=== PATIENT | female | born 1950 | race Caucasian/White ===

== ENCOUNTER → 2016-08-21 07:56 | Day surgery (SDC) | payer MEDICARE, BC ==
[~2016-08-21 07:56] MED LIST: Acetaminophen TAB* 325 MG PO PRN; Buffered Lidocaine 1% SYR 3ML* 3 ML/SYR SYRINGE INTRADERM ONE; Buffered Lidocaine 1% SYR 3ML* 3 ML/SYR SYRINGE ONE; Cyclopentolate 1% OPTH.SOL* 2 ML BTL ONE; Flurbiprofen 0.03% OPTH.SOL* 2.5 ML BTL ONE; Lidocaine 1% MPF* 2 ML VIAL ONE; Lidocaine 2% EPI 1:200000 MPF* 20 ML VIAL ONE; Midazolam* 1 MG/ML 2 ML VIAL (2 MG) ONE; Neomycin/Polymy/Dex OPTH.SUSP* MAXITROL 0.1% 5 ML ONE; Phenylephrine 2.5% OPTH.SOL* 2 ML BTL ONE; Povidone Iodine 5% OPTH* 30 ML BTL ONE; Proparacaine 0.5% OPHTH.SOL* 15 ML BTL ONE; acetaZOLAMIDE TAB* 250 MG ONE
[2016-08-21 10:11] VITALS: BP 109/70
--- NOTE | 2016-08-21 10:49 | OP ---
DATE OF OPERATION: 08/21/2016. DATE OF : 1950. SURGEON: Brad Mello M.D. PREOPERATIVE DIAGNOSIS: Cataract left eye. POSTOPERATIVE DIAGNOSIS: Cataract left eye. OPERATIVE PROCEDURE: Phacoemulsification left eye with IOL. PROCEDURE: The patient was brought to the operating room after being given 1/2% Alcaine with epinep hrine drops in the preoperative area. The eye was prepped and draped in the usual sterile fashion. Sterile drape and eyelid speculum were placed. Again, topical 1/2% Alcaine with epinephrine was gi jeremy. A paracentesis incision was made at the 3 o'clock position with the No.75 blade. Clear cornea incision 2.2 x 2.2-mm was created at the 6 o'clock position starting at the anterior limbus using t he 2.2-mm keratome. The anterior chamber was irrigated with 0.4 mL of 1% non-preservative intracame ral lidocaine and filled with DisCoVisc. A capsulorrhexis was completed using the cystotome and the Utrata forceps. Hydrodissection was performed with balanced salt solution. The lens nucleus was re moved with the Phacoemulsification handpiece without incident. Cortex was removed with the irrigati on-aspiration handpiece. The capsular bag was re-inflated using DisCoVisc and an [id number] implant was inserted with the shooter. The irrigation-aspiration handpiece was used to remove all residual DisCoVisc. The eye was refilled with balanced salt solution and the wound checked and found to be w atertight. Topical Maxitrol drops were given. [id number]/[facility] #: [id number]
== END | disposition home or self-care (01) ==
LOC: OREAST 07:56
PROVIDERS: ATTEND Specialist
DX: H25.12 Age-related nuclear cataract, left eye (principal); F17.210 Nicotine dependence, cigarettes, uncomplicated; H35.371 Puckering of macula, right eye; D18.09 Hemangioma of other sites; I10 Essential (primary) hypertension
CPT/HCPCS: A9270-GY; J2250; V2632

== ENCOUNTER → 2016-08-28 06:46 | Day surgery (SDC) | payer MEDICARE, BC ==
[~2016-08-28 06:46] MED LIST changes: -Midazolam* 1 MG/ML 2 ML VIAL (2 MG) ONE; +Midazolam* 1 MG/ML 5 ML VIAL (5 MG) ONE
[2016-08-28 08:49] VITALS: BP 109/62
--- NOTE | 2016-08-28 21:42 | OP ---
DATE OF OPERATION: 08/28/16 - [facility] DATE OF : [birth year] SURGEON: Brad Mello M.D. PREOPERATIVE DIAGNOSIS: Cataract, right eye. POSTOPERATIVE DIAGNOSIS: Cataract, right eye. OPERATIVE PROCEDURE: Phacoemulsification, right eye, with IOL. DESCRIPTION OF PROCEDURE: The patient was brought to the operating room after being given 1/2% Alcaine with epinephrine drops in the preoperative area. The eye was prepped and draped in the usual sterile fashion. Sterile drape and eyelid speculum were placed. Again, topical 1/2% Alcaine with epinephrine was given. A paracentesis incision was made at the 9 o'clock position with the No.75 blade. Clear cornea incision 2.2 x 2.2-mm was created at the 12 o'clock position starting at the anterior limbus using the 2.2-mm keratome. The anterior chamber was irrigated with 0.4 mL of 1% non-preservative intracameral lidocaine and filled with DisCoVisc. A capsulorrhexis was completed using the cystotome and the Utrata forceps. Hydrodissection was performed with balanced salt solution. The lens nucleus was removed with the Phacoemulsification handpiece without incident. Cortex was removed with the irrigation-aspiration handpiece. The capsular bag was re-inflated using DisCoVisc and an [id number] implant was inserted with the shooter. The irrigation-aspiration handpiece was used to remove all residual DisCoVisc. The eye was refilled with balanced salt solution and the wound checked and found to be watertight. Topical Maxitrol drops were given. [id number]/[facility] #: [id number] [facility]
== END | disposition home or self-care (01) ==
LOC: OREAST 06:46
PROVIDERS: ATTEND Specialist
DX: H25.11 Age-related nuclear cataract, right eye (principal); H35.372 Puckering of macula, left eye; D18.09 Hemangioma of other sites; F17.210 Nicotine dependence, cigarettes, uncomplicated; I10 Essential (primary) hypertension
CPT/HCPCS: A9270-GY; J2250; V2632

== ENCOUNTER 2018-12-18 23:38 | Emergency (ER) | payer MEDICARE, OTHER ==
[2018-12-19] MEDS ORDERED: Lidocaine 1% INJ* 10 MG/ML 30 ML SDV ONE (03:48)
--- NOTE | 2018-12-19 03:54 | ED ---
Upper Extremity Pain - HPI Summary HPI Summary: The patient is a 68 y/o F presenting to [facility] accompanied by with a chief complaint of falling out of her bed and injuring her left thumb tonight. She states that she landed on her hand, causing the left thumb to start swelling and become painful. She also has sustained two lacerations on the left forearm with the fall. The pain is currently rated 5/10 in severity. Movement of the thumb aggravates the pain. Current smoker, some EtOH (last drink was tonight), no substance use. - History of Current Complaint Chief Complaint: EDFall Stated Complaint: FALL/POSS DISLOCATED THUMB PER PT Time Seen by Provider: 12/19/18 03:39 Hx Obtained From: Patient Mechanism Of Injury: Other - fell out of bed onto floor onto hand Onset/Duration: Started Minutes Ago, Still Present Timing: Lasting Minutes Severity Initially: Moderate Severity Currently: Moderate Pain Location: Finger - left thumb Character: Throbbing Aggravating Factor(s): Movement Alleviating Factor(s): Rest Associated Signs & Symptoms: Positive: Other - swelling of left thumb - Allergies/Home Medications Allergies/Adverse Reactions: Allergies Allergy/AdvReac Type Severity Reaction Status Date / Time Sulfa (Sulfonamide Allergy Rash Verified 12/18/18 23:43 Antibiotics) PMH/Surg Hx/FS Hx/Imm Hx Endocrine/Hematology History: Denies: Hx Diabetes, Hx Anemia Cardiovascular History: Reports: Hx Hypertension - ON MEDS Denies: Other Cardiovascular Problems/Disorders GI History: Denies: Hx Jaundice, Other GI Disorders Musculoskeletal History: Denies: Other Musculoskeletal History Sensory History: Reports: Hx Cataracts - YAMILE, Hx Contacts or Glasses - GLASSES Denies: Hx Hearing Aid Opthamlomology History: Reports: Hx Cataracts - YAMILE, Hx Contacts or Glasses - GLASSES Neurological History: Denies: Other Neuro Impairments/Disorders Psychiatric History: Reports: Hx Anxiety - no meds, Hx Depression - no meds - Surgical History Surgery Procedure, Year, and Place: THYROID SURGERY, 2005, [facility] C[facility] Hx Anesthesia Reactions: No Infectious Disease History: No Infectious Disease History: Denies: Traveled Outside the [place] in Last 30 Days - Family History Known Family History: Negative: Hypertension, Diabetes - Social History Alcohol Use: Daily Alcohol Amount: 5 DRINKS A DAY Substance Use Type: Reports: None Hx Tobacco Use: Yes Smoking Status (MU): Light Every Day Tobacco Smoker Amount Used/How Often: 2-3 CIGS PER DAY Have You Smoked in the Last Year: Yes Review of Systems Positive: Other - pain and swelling in left thumb Positive: Other - laceration on left forearm All Other Systems Reviewed And Are Negative: Yes Physical Exam - Summary Physical Exam Summary: Appearance: Well appearing, no pain distress Skin: warm, dry, reflects adequate perfusion, superficial laceration of the left forearm Head/face: normal Eyes: EOMI, AAKASH ENT: normal Neck: supple, non-tender Respiratory: CTA, breath sounds present Cardiovascular: RRR, pulses symmetrical Abdomen: non-tender, soft Musculoskeletal: deformity of the left thumb, strength/ROM intact Neuro: normal, sensory motor intact, A&Ox3 Triage Information Reviewed: Yes Vital Signs On Initial Exam: Initial Vitals Temp Pulse Resp BP Pulse Ox 97.9 F 70 16 108/74 97 12/18/18 23:40 12/18/18 23:40 12/18/18 23:40 12/18/18 23:40 12/18/18 23:40 Vital Signs Reviewed: Yes Procedures - Joint Reduction Left Joint Reduction Site: other Specify Other Joint Reduced: left thumb at MCP Conscious Sedation: No Reduction Attempts: 1 Pre-Procedure NV Exam: Yes Post Joint Reduction Film: distal block and reduced MCP, patient tolerated well Diagnostics - Vital Signs Vital Signs Temp Pulse Resp BP Pulse Ox 12/19/18 02:00 98.0 F 73 15 110/68 97 12/18/18 23:40 97.9 F 70 16 108/74 97 - Laboratory Lab Statement: Any lab studies that have been ordered have been reviewed, and results considered in the medical decision making process. - Radiology L Thumb XR (pre-reduction) Radiology Interpretation Completed By: Radiologist Summary of Radiographic Findings: No finding of fracture. Dislocation of the first metacarpophalangeal joint. ED physician has reviewed this radiology report. L Thumb XR (post-reduction) Radiology Interpretation Completed By: Radiologist Summary of Radiographic Findings: Reduction of first metacarpophalangeal joint. ED physician has reviewed this radiology report. Course/Dx - Course Assessment/Plan: The patient is a 68 y/o F presenting to [facility] accompanied by with a chief complaint of falling out of her bed and injuring her left thumb tonight with immediate onset of pain with two lacerations on the left forearm. Upon physical exam, the patient exhibits superficial laceration on the left forearm and deformity of the left thumb. L Thumb XR (pre-reduction) impression reveals no fracture of the thumb, but there is a dislocation at the MCP join. Reduction included distal block with Lidocaine 1% and reduced dislocation of the first MCP joint; patient tolerated it well. L Thumb XR (post- reduction) impression revels reduced joint. She is diagnosed with dislocation of the first MCP joint of left hand. She will be discharged home with prescription for Ibuprofen and follow up with PCP in 2-3 days. She agrees with this plan and understands the need for return to the ED for any new or worsening symptoms. - Diagnoses Provider Diagnoses: Dislocation of metacarpophalangeal joint of left thumb Discharge - Sign-Out/Discharge Documenting (check all that apply): Patient Departure - Patient will be discharged home. Patient Received Moderate/Deep Sedation with Procedure: No - Discharge Plan Condition: Stable Disposition: HOME Prescriptions: Ibuprofen TAB* [Motrin TAB* 400 MG] 400 mg PO Q6H PRN #15 tab MDD 3 PRN Reason: Pain Patient Education Materials: Finger Dislocation (ED) Referrals: [facility] [Primary Care Provider] - 3 Days Additional Instructions: Please take medication as prescribed. Follow up with your primary care provider in 2-3 days. RETURN TO THE EMERGENCY DEPARTMENT FOR ANY NEW OR WORSENING SYMPTOMS. - Billing Disposition and Condition Condition: STABLE Disposition: Home - Attestation Statements Document Initiated by Lamont: Yes Documenting Scribe: Seema Spears Provider For Whom Lamont is Documenting (Include Credential): Dr. Devonte Soto MD Scribe Attestation: Seema Garcia scribed for Dr. Devonte Soto MD on 12/19/18 at 0436. Scribe Documentation Reviewed: Yes Provider Attestation: The documentation as recorded by the Seema allen accurately reflects the service I personally performed and the decisions made by me, Dr. Devonte Soto MD Status of Scribviet Document: Viewed
[2018-12-19] MEDS ORDERED: Lidocaine 1% INJ* 10 MG/ML 30 ML SDV INJ ONE (03:59)
[2018-12-19 04:44] VITALS: BP 131/85
== END 2018-12-19 04:47 | disposition home or self-care (01) ==
LOC: ED 23:38
DX: S63.115A Dislocation of metacarpophalangeal joint of left thumb, initial encounter (principal); S51.812A Laceration without foreign body of left forearm, initial encounter; W06.XXXA Fall from bed, initial encounter; Y92.003 Bedroom of unspecified non-institutional (private) residence as the place of occurrence of the external cause; I10 Essential (primary) hypertension; Z88.2 Allergy status to sulfonamides; F17.210 Nicotine dependence, cigarettes, uncomplicated
CPT/HCPCS: 26700; 99283